=== PATIENT | female | born 1970 | race African-American/Black ===

== ENCOUNTER → 2018-09-26 | Emergency (ER) | payer MEDICARE, MEDICAID ==
[~2018-09-26] VITALS: Ht 175.3 cm; Wt 160.0 kg
[~2018-09-26] MED LIST: ALLO100T PO; ASPI-1265 PO; COLC0.6T69 PO; ESCI20TA38 PO; HYDR25TA4 PO; IBUP-1984 PO; LOSA25TA96 PO; PENI500T2 PO; RISP0.5T3 PO; SIMV40TA PO; TRAZ-219 PO; ibuprofen tablet 400 MG TABLET PO ONE
[2018-09-26 05:51] VITALS: BP 158/82
== END | disposition home or self-care (01) ==
LOC: ER 05:49
DX: K02.9 Dental caries, unspecified (principal); E78.00 Pure hypercholesterolemia, unspecified; I10 Essential (primary) hypertension; M19.90 Unspecified osteoarthritis, unspecified site; M10.9 Gout, unspecified; Z79.82 Long term (current) use of aspirin; Z79.899 Other long term (current) drug therapy
CPT/HCPCS: 99283

== ENCOUNTER 2022-01-30 15:30 | Emergency (ER) | payer MEDICARE, MEDICAID ==
[~2022-01-30] VITALS: Ht 175.3 cm; Wt 161.8 kg
[~2022-01-30 15:30] MED LIST changes: -COLC0.6T69 PO; +COLC0.6T72 PO; -ESCI20TA38 PO; +ESCI20TA39 PO; -IBUP-1984 PO; -PENI500T2 PO; -RISP0.5T3 PO; +RISP0.5T65 PO; -TRAZ-219 PO; +TRAZ-256 PO; -ibuprofen tablet 400 MG TABLET PO ONE
[2022-01-30 16:00] VITALS: BP 185/95
[2022-01-30] MEDS ORDERED: ketorolac trometh. 30mg/ml inj. IM ONE (19:05)
[2022-01-30] MEDS ORDERED: HYDROcodone/acetaminophen 10/325mg tab PO ONE (19:05)
[2022-01-30] MEDS ORDERED: CELE100C98 PO (19:12)
== END 2022-01-30 20:24 | disposition home or self-care (01) ==
LOC: ER 15:30
DX: M25.572 Pain in left ankle and joints of left foot (principal); M25.562 Pain in left knee; M10.9 Gout, unspecified; E66.01 Morbid (severe) obesity due to excess calories; R60.9 Edema, unspecified; E78.00 Pure hypercholesterolemia, unspecified; I10 Essential (primary) hypertension; Z79.82 Long term (current) use of aspirin; Z79.899 Other long term (current) drug therapy; Z68.43 Body mass index [BMI] 50.0-59.9, adult
CPT/HCPCS: 96372; 99283; J1885

== ENCOUNTER 2022-07-18 11:04 | Emergency (ER) | payer MEDICARE, MEDICAID ==
[~2022-07-18] VITALS: Ht 175.3 cm; Wt 159.1 kg
[~2022-07-18 11:04] MED LIST changes: +CELE100C98 PO
[2022-07-18 11:11] VITALS: BP 172/91
--- NOTE | 2022-07-18 11:16 | NUR ---
PT HAS BEEN AROUND SOMEONE POSITIVE FOR COVID.
[2022-07-18] MEDS ORDERED: ketorolac trometh. 30mg/ml inj. IM ONE (12:55)
[2022-07-18] MEDS ORDERED: orphenadrine citrate 60mg/2ml inj. IM ONE (12:55)
== END 2022-07-18 14:43 | disposition home or self-care (01) ==
LOC: ER 11:05
DX: M54.50 Low back pain, unspecified (principal); M10.9 Gout, unspecified; E78.00 Pure hypercholesterolemia, unspecified; I10 Essential (primary) hypertension; M19.90 Unspecified osteoarthritis, unspecified site
CPT/HCPCS: 96372; 99284; J1885; J2360